=== PATIENT | female | born 1975 | race Caucasian/White ===

== ENCOUNTER 2017-08-20 12:13 | Emergency (ER) | payer OTHER ==
[2017-08-20 13:04] VITALS: BP 134/86
--- NOTE | 2017-08-20 13:16 | UC ---
Eye Complaint HPI - HPI Summary HPI Summary: pt c/o of left inner eye redness and painless, "white bump" that began 1-3 days ago. Pt denies injury. Does not wear eye glasses or contacts. - History of Current Complaint Chief Complaint: UCEye Stated Complaint: LEFT EYE COMPLAINT Time Seen by Provider: 08/20/17 12:51 Hx Obtained From: Patient Hx Last Menstrual Period: last month ?: No Onset/Duration: Gradual Onset, Lasting Days, Still Present, Worse Since - onset Timing: Constant Severity Initially: Mild Severity Currently: Mild Location of Injury: Sclera Aggravating Factor(s): Nothing Associated Signs And Symptoms: Positive: Vision Impairment Left - slight change - Risk Factors Penetrating Injury Risk Factor: Negative Acute Glaucoma Risk Factors: Eye Inflammation - Allergies/Home Medications Allergies/Adverse Reactions: Allergies Allergy/AdvReac Type Severity Reaction Status Date / Time No Known Allergies Allergy Verified 08/20/17 13:03 Home Medications: Home Medications Ibuprofen TAB* [Motrin TAB* 400 MG] 400 mg PO Q24H PRN 08/20/17 [History Confirmed 08/20/17] Naproxen Sodium [Naproxen Sodium 220 mg] 220 mg PO Q12HR PRN 08/20/17 [History Confirmed 08/20/17] PMH/Surg Hx/FS Hx/Imm Hx Previously Healthy: Yes - Surgical History Surgical History: Yes Surgery Procedure, Year, and Place: BIOPSY BREAST ADRIÁN. RIGHT CARPAL TUNNEL RELEASE, , [facility] [place]; left carpal tunnel May 2016 at [facility] [place] - Family History Known Family History: Positive: Cardiac Disease - Social History Occupation: Employed Full-time Lives: With Family Alcohol Use: Occasionally Alcohol Amount: 3 PER YEAR Substance Use Type: None Smoking Status (MU): Former Smoker Amount Used/How Often: 1/2 PACK A DAY Have You Smoked in the Last Year: Yes Review of Systems Constitutional: Negative Skin: Negative Eyes: Blurred Vision - slight, left eye, Eye Redness, Other - white, painless bump on left proximal sclera ENT: Negative Respiratory: Negative Cardiovascular: Negative Gastrointestinal: Negative Genitourinary: Negative Motor: Negative Neurovascular: Negative Musculoskeletal: Negative Neurological: Negative Psychological: Negative Is Patient Immunocompromised?: No All Other Systems Reviewed And Are Negative: Yes Physical Exam Triage Information Reviewed: Yes Appearance: Well-Appearing Vital Signs: Initial Vital Signs Temp 98.3 F 08/20/17 12:51 Pulse 90 08/20/17 12:51 Resp 18 08/20/17 12:51 BP 134/86 08/20/17 12:51 Vital Signs Reviewed: Yes Eyes: Positive: Conjunctiva Clear, Other: - left eye, at 9 o'clock position to iris, proximal, with white bump or over growth of sclera ENT Exam: Normal Neck exam: Normal Respiratory Exam: Normal Cardiovascular Exam: Normal Musculoskeletal Exam: Normal Neurological Exam: Normal Psychological Exam: Normal Skin Exam: Normal Eye Complaint Course/Dx - Course Course Of Treatment: I advised the pt to seek an exam by an eye care provider KELY, within the next 24 hours. Pt verbalized understanding and agreed to plan of care. - Differential Dx/Diagnosis Differential Diagnosis/HQI/PQRI: Glaucoma, Other - subjunctival hematoma, piguecula Provider Diagnoses: subjunctival hematoma,. pinguecula Discharge - Discharge Plan Condition: Stable Disposition: HOME Patient Education Materials: Subconjunctival Hemorrhage (ED), Pinguecula (ED) Referrals: Scot Moses OD [Doctor of Osteopathy] - As Soon As Possible THERESA Mortensen [Primary Care Provider] - If Needed Qamar Sierra MD [Medical Doctor] - As Soon As Possible Additional Instructions: Please follow up with your PCP as needed and with eye care provider as soon as possible.
== END 2017-08-20 13:32 | disposition home or self-care (01) ==
LOC: UCCORT 12:13
DX: H11.32 Conjunctival hemorrhage, left eye (principal); H11.152 Pinguecula, left eye; Z87.891 Personal history of nicotine dependence
CPT/HCPCS: 99212; G0463